=== PATIENT | male | born 1960 | race Caucasian/White ===

== ENCOUNTER 2021-01-25 13:48 | Emergency (ER) | payer OTHER ==
[~2021-01-25] VITALS: Ht 170.2 cm; Wt 68.5 kg
[2021-01-25 14:02] VITALS: BP 149/84
--- NOTE | 2021-01-25 14:04 | NUR ---
Pt sent to ER lobby to wait for MSE or available bed.
--- NOTE | 2021-01-25 14:05 | NUR ---
Pt placed in chair A.
--- NOTE | 2021-01-25 14:06 | NUR ---
Patient being evaluated by STAN Santos in chair B.
--- NOTE | 2021-01-25 14:20 | NUR ---
60/M presents to ED, sent from urgent care for evaluation and x-ray. Patient states he fell while at work on , had a slip and fall. Pt has an abrasion to mid right flank area, no bruising noted. Pt denies any pain while resting but when cough, sneezing or any exertion pt states he has severe pain. Pt AOX4, ambulatory with steady gait. No acute distress noted.
--- NOTE | 2021-01-25 14:47 | NUR ---
Pt brought back from x-ray and placed in chair A.
[2021-01-25] MEDS ORDERED: IBUP-2213 PO (15:16)
--- NOTE | 2021-01-25 15:55 | NUR ---
RT EXPLAINING HOW TO USE THE INCENTIVE SPIROMETER, HE UNDERSTAND.
[2021-01-25 16:00] VITALS: BP 122/80
== END 2021-01-25 16:00 | disposition home or self-care (01) ==
LOC: MED 13:48
DX: S22.31XA Fracture of one rib, right side, initial encounter for closed fracture (principal); I10 Essential (primary) hypertension; Z79.899 Other long term (current) drug therapy; W18.30XA Fall on same level, unspecified, initial encounter; Y93.89 Activity, other specified; Y92.89 Other specified places as the place of occurrence of the external cause; Y99.8 Other external cause status
CPT/HCPCS: 71101; 72072; 99284